=== PATIENT | male | born 1990 | race American Indian/Alaskan Native ===

== ENCOUNTER 2018-11-29 02:00 | Emergency (ER) | payer OTHER ==
[2018-11-29 02:57] LABS: Basophils # (Auto) 0.1 K/mm3 (0.0-0.1); Basophils % (Auto) 1.2 % (0.0-1.8); Eosinophils # (Auto) 0.1 K/mm3 (0.0-0.4); Eosinophils % (Auto) 1.6 % (0.0-4.3); Hematocrit 43.7 % (35.5-45.6); Hemoglobin 14.9 gm/dl (11.8-15.2); Lymphocytes # (Auto) 2.7 K/mm3 (1.2-5.4); Lymphocytes % (Auto) 39.8 % (13.4-35.0); Mean Corpuscular HGB Conc 34 % (32-34); Mean Corpuscular Volume 96 fl (84-94); Monocytes # (Auto) 0.6 K/mm3 (0.0-0.8); Monocytes % (Auto) 8.3 % (0.0-7.3); Platelet Count 194 K/mm3 (140-440); Red Blood Count 4.58 M/mm3 (3.65-5.03); Red Cell Distribution Width 13.6 % (13.2-15.2)
[2018-11-29 03:10] LABS: BUN/Creatinine Ratio 9; Blood Urea Nitrogen 11 mg/dL (9-20); Calcium 8.7 mg/dL (8.4-10.2); Hemolysis Index 10
[2018-11-29 03:30] LABS: Bilirubin,Urine NEG (Negative); Blood,Urine SM (Negative); Color,Urine Straw (Yellow); Protein,Urine <15 mg/dL mg/dL (Negative); RBC,Urine < 1.0 /HPF (0.0-6.0); Urobilinogen,Urine < 2.0 mg/dL (<2.0); WBC,Urine < 1.0 /HPF (0.0-6.0)
[2018-11-29] MEDS ORDERED: NACL 0.9% 1000 ML 1,000 ML IV ONE (03:40)
[2018-11-29] MEDS ORDERED: ATIVAN IV ONE (03:40)
[2018-11-29] MEDS ORDERED: TORADOL IV ONE (03:40)
[2018-11-29 03:43] LABS: Amphetamine Screen,Urine PRESUMPTIVE NEGATIVE; Benzodiazepines Screen,Urine PRESUMPTIVE NEGATIVE; Cocaine Screen,Urine PRESUMPTIVE NEGATIVE; Methadone Screen,Urine PRESUMPTIVE NEGATIVE; Opiate Screen,Urine PRESUMPTIVE NEGATIVE
--- NOTE | 2018-11-29 03:46 | Emergency Department Report ---
ED Palpitations HPI - General Chief Complaint: Arrhythmia/Palpitations Stated Complaint: ACCELERATED HEART RATE Time Seen by Provider: 11/29/18 02:57 Source: patient Mode of arrival: Ambulatory Limitations: No Limitations - History of Present Illness Initial Comments: 28-year-old male presents to ED with complaint of palpitations. Patient states he drank some activated charcoal in order to pass a drug test. States he last smoked marijuana 2 days ago. After drinking the charcoal patient states he began to feel anxious, shaky, and reports his heart began to race as well. Patient states he got the charcoal from his mother. Does not know where she got it from. Complaint: "heart racing" -: This morning Context: occured during rest Associated Symptoms: anxiety - Related Data Allergies Allergy/AdvReac Type Severity Reaction Status Date / Time No Known Allergies Allergy Verified 11/29/18 02:25 ED Review of Systems ROS: Stated complaint: ACCELERATED HEART RATE Other details as noted in HPI Comment: All other systems reviewed and negative Respiratory: denies: shortness of breath Cardiovascular: chest pain, palpitations Gastrointestinal: denies: nausea, vomiting Psychiatric: anxiety ED Past Medical Hx - Past Medical History Previous Medical History?: No - Surgical History Past Surgical History?: No - Social History Smoking Status: Former Smoker Substance Use Type: Marijuana ED Physical Exam - General Limitations: No Limitations General appearance: alert, in no apparent distress - Head Head exam: Present: atraumatic, normocephalic - Eye Eye exam: Present: normal appearance - ENT ENT exam: Present: mucous membranes moist - Neck Neck exam: Present: normal inspection - Respiratory Respiratory exam: Present: normal lung sounds bilaterally. Absent: respiratory distress - Cardiovascular Cardiovascular Exam: Present: normal rhythm, tachycardia - GI/Abdominal GI/Abdominal exam: Present: soft. Absent: distended, tenderness - Extremities Exam Extremities exam: Present: normal inspection - Neurological Exam Neurological exam: Present: alert, oriented X3, CN II-XII intact, other (slight tremor on exam). Absent: motor sensory deficit - Psychiatric Psychiatric exam: Present: normal affect, normal mood - Skin Skin exam: Present: warm, dry, intact, normal color ED Course Vital Signs 11/29/18 11/29/18 11/29/18 02:23 03:05 03:16 Temperature 98.8 F Pulse Rate 115 H 102 H 113 H Respiratory 16 12 16 Rate Blood Pressure 121/63 Blood Pressure 152/89 [Left] O2 Sat by Pulse 100 100 100 Oximetry 11/29/18 11/29/18 11/29/18 03:30 03:46 04:00 Temperature Pulse Rate 96 H 100 H 94 H Respiratory 12 14 11 L Rate Blood Pressure 128/68 132/71 121/65 Blood Pressure [Left] O2 Sat by Pulse 99 100 99 Oximetry 11/29/18 11/29/18 11/29/18 04:16 04:30 04:46 Temperature Pulse Rate 99 H 101 H 99 H Respiratory 12 15 11 L Rate Blood Pressure 121/65 118/71 118/71 Blood Pressure [Left] O2 Sat by Pulse 100 99 98 Oximetry 11/29/18 11/29/18 11/29/18 05:00 05:16 05:30 Temperature Pulse Rate 98 H 91 H 91 H Respiratory 13 20 22 Rate Blood Pressure 127/72 127/72 114/66 Blood Pressure [Left] O2 Sat by Pulse 100 98 96 Oximetry 11/29/18 05:46 Temperature Pulse Rate 85 Respiratory 21 Rate Blood Pressure 114/66 Blood Pressure [Left] O2 Sat by Pulse 98 Oximetry ED Medical Decision Making - Lab Data Result diagrams: 11/29/18 02:51 11/29/18 02:51 - EKG Data -: EKG Interpreted by Pr EKG shows normal: sinus rhythm, axis, intervals, QRS complexes, ST-T waves Rate: tachycardia (rate 116) - EKG Data Interpretation: no acute changes - Radiology Data Radiology results: report reviewed, image reviewed - Medical Decision Making 28-year-old male with racing heart, tremulousness and to drinking charcoal that he got from his mother. Workup unremarkable. Patient tachycardic initially, EKG shows sinus tach. Patient 1 L IV fluid bolus, Ativan 0.5 mg IV, which seeme d to improve patient's symptoms. Tachycardia resolved, anxiousness resolved. Unclear if he took was actually charcoal, as he says he received from his mother and is unsure where she got it from. This reaction is not a known side effect of activated charcoal, however this could be patient's reaction to it. Drug screen only positive for marijuana. Patient feeling much better at this time. Return precautions given. Outpatient follow-up advised. - Differential Diagnosis electrolyte abnormality, arrythmia, anxiety Critical care attestation.: If time is entered above; I have spent that time in minutes in the direct care of this critically ill patient, excluding procedure time. ED Disposition Clinical Impression: Palpitations Disposition: DC-01 TO HOME OR SELFCARE Is pt being admited?: No Condition: Stable Instructions: Palpitations (ED) Referrals: KORIN PARMAR MD [Primary Care Provider] - 3-5 Days Time of Disposition: 05:45
[2018-11-29 03:59] LABS: Cannabinoid Screen,Urine PRESUMPTIVE POSITIVE
--- NOTE | 2018-11-29 05:46 | XRay Report ---
PROCEDURE: PORTABLE CHEST TECHNIQUE: A portable AP chest radiograph was obtained at 11/29/2018 9:23 CDT. CPT 18676 HISTORY: Chest pain COMPARISONS: None. FINDINGS: Heart: Normal. Mediastinum/Vessels: Normal. Lungs/Pleural space: Normal. Bony thorax: No acute osseous abnormality. Life support devices: None. IMPRESSION: No acute cardiopulmonary abnormality. This document is electronically signed by Idris Wolf MD., November 29 2018 05:45:07 AM ET
[2018-11-29 06:10] VITALS: BP 114/66
== END 2018-11-29 06:11 | disposition home or self-care (01) ==
LOC: ED 02:17
DX: R00.2 Palpitations (principal); F12.10 Cannabis abuse, uncomplicated; Z87.891 Personal history of nicotine dependence
CPT/HCPCS: 36415; 71045; 80048; 80307; 81001; 84484; 85025; 93005; 93010; 96374; 96375; 99284; J1885; J2060; J7030